=== PATIENT | female | born 1970 | race Caucasian/White ===

== ENCOUNTER 2016-10-31 21:17 | Inpatient (IN) | payer BC, OTHER ==
[~2016-10-31] VITALS: Ht 165.1 cm; Wt 78.7 kg
[2016-10-31 22:23] LABS: Urine Bilirubin Negative (Negative); Urine Blood Negative /uL (Negative); Urine Color Yellow (Yellow); Urine Glucose Normal (Normal); Urine Ketone 2+ (Negative); Urine Mucus FEW (None Seen); Urine Nitrite Negative (Negative); Urine RBC <1 /hpf (0 - 4); Urine Squamous Epithelial Cell FEW /hpf (<5); Urine pH 8.5 (5.0-8.0)
[2016-10-31 22:24] LABS: Basophils # (auto) 0.1 uL; Basophils % (auto) 0.5 % (0.0-2.0); Eosinophils # (auto) 0 uL; Hematocrit 35.2 % (36.0-46.0); Hemoglobin 11.8 g/dL (12.2-16.2); Lymphocytes # (auto) 0.3 uL; Lymphocytes % (auto) 2.3 % (10.0-50.0); Mean Corpuscular Hemoglobin 28.9 pg (28.0-32.0); Mean Corpuscular Hgb Conc. 33.6 g/dL (32.0-36.0); Mean Corpuscular Volume 86.1 fL (80.0-100.0); Mean Platelet Volume 7.4 fL (6.9-10.8); Monocytes # (auto) 1.2 uL; Monocytes % (auto) 8.1 % (0.0-12.0); Neutrophils # (auto) 13.3 uL; Neutrophils % (auto) 89.1 % (37.0-80.0); Platelet Count (auto) 202 10^3/uL (140-450); White Blood Cell 14.9 10^3/uL (4.4-10.8)
[2016-10-31 22:31] LABS: INR 1.09 (0.9-1.15); Partial Thromboplastin Time 25.8 sec (22.64-33.71); Prothrombin Time 11.9 sec (9.37-12.3)
[2016-10-31 22:42] LABS: Albumin 3.6 g/dL (3.4-5.0); BUN/Creatinine Ratio 11.5; Calcium 8.7 mg/dL (8.5-10.1); Potassium 3.9 mmol/L (3.5-5.1)
[2016-10-31 22:45] LABS: Bilirubin, Total 0.8 mg/dL (0.2-1.0); Total Protein 7.2 g/dL (6.4-8.2)
[2016-11-01] MEDS ORDERED: SODIUM CHLORIDE 0.9% 1,000 ML IV ONE ×2 (01:15)
[2016-11-01] MEDS ORDERED: metroNIDAZOLE 500MG/100ML 100 ML IV ONE (01:15)
[2016-11-01] MEDS ORDERED: cefTRIAXone 1GM/50ML D5W 50 ML IV ONE (01:15)
[2016-11-01] MEDS ORDERED: ONDANSETRON HCL 4 MG/2 ML VIAL IV ONE (02:30)
[2016-11-01] MEDS ORDERED: MORPHINE SULF INJ 2 MG/ML SYRINGE 1ML IV ONE (02:30)
[2016-11-01] MEDS ORDERED: NITROGLYCERIN 0.4 MG SL TAB SL PRN (07:00)
[2016-11-01] MEDS ORDERED: ACETAMINOPHEN 325 MG TAB PO PRN (07:00)
[2016-11-01] MEDS ORDERED: MORPHINE SULF INJ 2 MG/ML SYRINGE 1ML IV PRN (07:00)
[2016-11-01] MEDS ORDERED: ONDANSETRON HCL 4 MG/2 ML VIAL IV PRN (07:00)
[2016-11-01 08:28] VITALS: BP 102/68
[2016-11-01] MEDS: MORPHINE SULF INJ 2 MG/ML SYRINGE 1ML IV PRN ×3 (08:48→22:48)
[2016-11-01] MEDS: SODIUM CHLORIDE 0.9% 1,000 ML IV SCH ×2 (08:48→12:00)
[2016-11-01] MEDS: cefTRIAXone 1GM/50ML D5W 50 ML IV SCH (08:57)
[2016-11-01] MEDS: PANTOPRAZOLE 40 MG/10 ML VIAL IV SCH (10:20)
[2016-11-01 12:30] VITALS: BP 92/55
[2016-11-01] MEDS: D5W/LACTATED RINGERS 1,000 ML IV SCH ×2 (12:42→21:00)
[2016-11-01] MEDS: metroNIDAZOLE 500MG/100ML 100 ML IV SCH ×2 (14:48→22:47)
[2016-11-01 16:12] VITALS: BP 91/55
[2016-11-01] MEDS ORDERED: BUPIVACAINE 0.25% INJ 50ML VIAL ONE (16:20)
[2016-11-01] MEDS ORDERED: LIDOCAINE 1% HCL (LOCAL ANESTH.) INJ 20ML MDV ONE (16:20)
[2016-11-01] MEDS ORDERED: ceFAZolin 1GM/50ML D5W 50 ML IV ONE (16:25)
[2016-11-01] MEDS ORDERED: PROPOFOL 10 MG/ML 20 ML IV ONE (16:30)
[2016-11-01] MEDS ORDERED: MIDAZOLAM HCL 1MG/1ML-2 ML VIAL ONE (16:30)
[2016-11-01] MEDS ORDERED: MEPERIDINE HCL (50 MG/ML) 1 ML VIAL ONE (16:30)
[2016-11-01] MEDS ORDERED: SODIUM CHLORIDE LOCK 10 ML ONE (16:30)
[2016-11-01] MEDS ORDERED: fentaNYL CITRATE 100 MCG/2 ML VL ONE (16:30)
[2016-11-01] MEDS ORDERED: ROCURONIUM 10MG/ML 10ML VIAL IV ONE (16:30)
[2016-11-01] MEDS ORDERED: KETOROLAC TROMETH 60MG/2ML VIAL IM ONE (17:06)
[2016-11-01] MEDS ORDERED: NEOSTIGMINE 1 MG/ML INJ (10mg/10ML VIAL) ONE (17:06)
[2016-11-01] MEDS ORDERED: GLYCOPYRROLATE 0.2 MG/ML 1ML VIAL ONE (17:06)
[2016-11-01] MEDS ORDERED: METOCLOPRAMIDE HCL 5MG/ml INJ 2ml VIAL IV ONE (18:00)
[2016-11-01] MEDS ORDERED: KETOROLAC TROMETH 30 MG/ML 1ML VIAL IV ONE (18:00)
[2016-11-01] MEDS: HYDROmorphone HCL 2 MG/ML VL IV PRN ×2 (18:05→18:15)
[2016-11-01 20:00] VITALS: BP 90/57
[2016-11-01 22:00] VITALS: BP 90/57
[2016-11-01] MEDS: HYDROcodone-ACET 5/325MG TAB PO PRN (23:07)
[2016-11-02] MEDS: D5W/LACTATED RINGERS 1,000 ML IV SCH (04:18)
[2016-11-02 05:33] VITALS: BP 96/58
[2016-11-02] MEDS: metroNIDAZOLE 500MG/100ML 100 ML IV SCH ×3 (05:35→21:00)
[2016-11-02] MEDS: HYDROcodone-ACET 5/325MG TAB PO PRN ×3 (05:40→21:01)
[2016-11-02 07:06] LABS: Basophils # (auto) 0 uL; Eosinophils # (auto) 0 uL; Hematocrit 29.4 % (36.0-46.0); Hemoglobin 9.9 g/dL (12.2-16.2); Lymphocytes # (auto) 0.4 uL; Mean Corpuscular Hemoglobin 29.5 pg (28.0-32.0); Mean Corpuscular Hgb Conc. 33.7 g/dL (32.0-36.0); Mean Corpuscular Volume 87.4 fL (80.0-100.0); Mean Platelet Volume 7.9 fL (6.9-10.8); Monocytes # (auto) 0.6 uL; Monocytes % (auto) 6.6 % (0.0-12.0); Neutrophils # (auto) 7.9 uL; Neutrophils % (auto) 89.4 % (37.0-80.0); Platelet Count (auto) 142 10^3/uL (140-450); Red Cell Distribution Width 14.2 % (11.8-14.3); White Blood Cell 8.9 10^3/uL (4.4-10.8)
[2016-11-02 07:26] LABS: Albumin 2.7 g/dL (3.4-5.0); Calcium 8.4 mg/dL (8.5-10.1); Potassium 4.7 mmol/L (3.5-5.1)
[2016-11-02 07:28] LABS: BUN/Creatinine Ratio 16.7
[2016-11-02 07:31] LABS: Bilirubin, Total 0.3 mg/dL (0.2-1.0); Total Protein 5.7 g/dL (6.4-8.2)
[2016-11-02 08:00] VITALS: BP 115/70
[2016-11-02 09:12] VITALS: BP 99/63
[2016-11-02] MEDS: cefTRIAXone 1GM/50ML D5W 50 ML IV SCH (09:27)
[2016-11-02] MEDS: PANTOPRAZOLE 40 MG/10 ML VIAL IV SCH (09:27)
[2016-11-02] MEDS ORDERED: MORPHINE SULF INJ 2 MG/ML SYRINGE 1ML IV PRN (10:45)
[2016-11-02] MEDS ORDERED: D5W/LACTATED RINGERS 1,000 ML IV SCH (12:30)
[2016-11-02 13:10] VITALS: BP 115/70
[2016-11-02 16:47] VITALS: BP 109/64
[2016-11-02 22:20] VITALS: BP 96/70
[2016-11-03 05:07] VITALS: BP 103/69
[2016-11-03] MEDS: metroNIDAZOLE 500MG/100ML 100 ML IV SCH (05:49)
[2016-11-03 08:00] VITALS: BP 134/80
[2016-11-03] MEDS: cefTRIAXone 1GM/50ML D5W 50 ML IV SCH (08:24)
[2016-11-03 08:55] VITALS: BP 134/80
[2016-11-03 10:36] VITALS: BP 134/80
[2016-11-03] MEDS ORDERED: ONDA4TAB5 PO (12:29)
== END 2016-11-03 17:07 | disposition home or self-care (01) | DRG 340 ==
LOC: ER 21:24 → TELE 21:25 → TELE-E-ADS 11-01 08:02 → TELE-CENTR 11-01 11:34
PROVIDERS: ADMIT Nurse Practitioner; ATTEND Hospitalist
PROC: 0W9J4ZZ Drainage of Pelvic Cavity, Percutaneous Endoscopic Approach (ICD-10-PCS; 2016-11-01)
PROC: 0DTJ4ZZ Resection of Appendix, Percutaneous Endoscopic Approach (ICD-10-PCS; principal; 2016-11-01 16:35)
DX: K35.3 Acute appendicitis with localized peritonitis (principal); N20.0 Calculus of kidney; N73.9 Female pelvic inflammatory disease, unspecified; J45.909 Unspecified asthma, uncomplicated; Z82.3 Family history of stroke; Z83.3 Family history of diabetes mellitus; Z82.49 Family history of ischemic heart disease and other diseases of the circulatory system; Z82.0 Family history of epilepsy and other diseases of the nervous system
CPT/HCPCS: 36415; 74176; 80053; 81001; 81025; 82150; 83690; 84702; 85025; 85610; 85730; 86850; 86900; 86901; 87040; C9113; J0690; J0696; J1885; J2001; J2250; J2405; J2704; J3490

== ENCOUNTER 2016-11-05 14:12 | Emergency (ER) | payer BC ==
[~2016-11-05] VITALS: Ht 165.1 cm; Wt 70.3 kg
[~2016-11-05 14:12] MED LIST: ONDA4TAB5 PO
[2016-11-05 15:10] LABS: Basophils # (auto) 0.1 uL; Basophils % (auto) 0.8 % (0.0-2.0); Eosinophils # (auto) 0.1 uL; Eosinophils % (auto) 1.2 % (0.0-7.0); Hematocrit 33.7 % (36.0-46.0); Lymphocytes % (auto) 14.2 % (10.0-50.0); Mean Corpuscular Hemoglobin 28.2 pg (28.0-32.0); Mean Corpuscular Hgb Conc. 32.7 g/dL (32.0-36.0); Mean Corpuscular Volume 86.3 fL (80.0-100.0); Mean Platelet Volume 7.5 fL (6.9-10.8); Monocytes # (auto) 0.6 uL; Monocytes % (auto) 8.7 % (0.0-12.0); Neutrophils # (auto) 5.3 uL; Neutrophils % (auto) 75.1 % (37.0-80.0); Nucleated Red Blood Cells % 0.1 %; Platelet Count (auto) 227 10^3/uL (140-450); White Blood Cell 7.1 10^3/uL (4.4-10.8)
[2016-11-05 15:29] LABS: Albumin 3.2 g/dL (3.4-5.0); Anion Gap 6 (5-15); Blood Urea Nitrogen 8 mg/dL (7-18); Calcium 8.5 mg/dL (8.5-10.1); Carbon Dioxide 27 mmol/L (21-32); Chloride 109 mmol/L (98-107); Glucose 99 mg/dL (74-106); Magnesium 2.1 mg/dL (1.6-2.6); Potassium 3.9 mmol/L (3.5-5.1); Sodium 142 mmol/L (136-145)
[2016-11-05 15:31] LABS: Aspartate Aminotransferase 17 U/L (15-37); BUN/Creatinine Ratio 11.8; GFR African American 121 mL/min; GFR Non-African American 100 mL/min
[2016-11-05 15:36] LABS: Alkaline Phosphatase 51 U/L (45-117); Bilirubin, Total 0.3 mg/dL (0.2-1.0); Total Protein 6.6 g/dL (6.4-8.2)
[2016-11-05 15:46] LABS: Urine Bilirubin Negative (Negative); Urine Blood Negative /uL (Negative); Urine Color Yellow (Yellow); Urine Glucose Normal (Normal); Urine Ketone Negative (Negative); Urine Nitrite Negative (Negative); Urine RBC <1 /hpf (0 - 4); Urine Squamous Epithelial Cell FEW /hpf (<5); Urine Urobilinogen Normal (Negative); Urine pH 7.5 (5.0-8.0)
[2016-11-05] MEDS ORDERED: SODIUM CHLORIDE 0.9% 1,000 ML IVB ONE (16:52)
[2016-11-05] MEDS ORDERED: cefTRIAXone 1GM/50ML D5W 50 ML IV ONE (18:00)
[2016-11-05] MEDS ORDERED: IBUPROFEN 600 MG TAB PO ONE (18:15)
[2016-11-05] MEDS ORDERED: ONDANSETRON HCL 4 MG/2 ML VIAL IV ONE (19:00)
[2016-11-05 19:57] VITALS: BP 119/69
== END 2016-11-05 20:45 | disposition home or self-care (01) ==
LOC: ER 14:19
DX: J18.1 Lobar pneumonia, unspecified organism (principal); J45.909 Unspecified asthma, uncomplicated; Z90.89 Acquired absence of other organs
CPT/HCPCS: 36415; 71020; 74176; 80053; 81001; 81025; 83690; 83735; 84443; 84484; 85025; 85379; 93005; 94761; 96361; 96365; 96375; 99285; J0696; J2405; J7030

== ENCOUNTER 2018-06-02 00:23 | Emergency (ER) | payer BC, OTHER ==
[~2018-06-02] VITALS: Ht 165.1 cm; Wt 81.6 kg
[2018-06-02 01:48] LABS: Basophils # (auto) 0.2 uL; Eosinophils # (auto) 0.2 uL; Eosinophils % (auto) 2.3 % (0.0-7.0); Hematocrit 36.3 % (36.0-46.0); Lymphocytes # (auto) 1.6 uL; Lymphocytes % (auto) 19.3 % (10.0-50.0); Mean Corpuscular Hemoglobin 27.4 pg (28.0-32.0); Mean Corpuscular Hgb Conc. 33.1 g/dL (32.0-36.0); Mean Corpuscular Volume 82.7 fL (80.0-100.0); Monocytes # (auto) 0.7 uL; Monocytes % (auto) 8.2 % (0.0-12.0); Neutrophils # (auto) 5.8 uL; Neutrophils % (auto) 68.2 % (37.0-80.0); Platelet Count (auto) 247 10^3/uL (140-450); Red Blood Cells 4.39 10^6/uL (4.0-5.20); Red Cell Distribution Width 14.5 % (11.8-14.3); White Blood Cell 8.5 10^3/uL (4.4-10.8)
[2018-06-02 01:58] LABS: Urine Bacteria NONE SEEN /hpf (None Seen); Urine Blood 1+ /uL (Negative); Urine Mucus FEW (None Seen); Urine Specific Gravity 1.023 (1.001-1.035); Urine WBC 1 /hpf (0 - 5)
[2018-06-02 01:59] LABS: Potassium 4.2 mmol/L (3.5-5.1)
[2018-06-02 02:03] LABS: Albumin 3.7 g/dL (3.4-5.0); Calcium 8.6 mg/dL (8.5-10.1)
[2018-06-02 02:09] LABS: BUN/Creatinine Ratio 12.5; Bilirubin, Total 0.1 mg/dL (0.2-1.0); Total Protein 7.5 g/dL (6.4-8.2)
[2018-06-02] MEDS ORDERED: SODIUM CHLORIDE 0.9% 1,000 ML IV ONE (08:53)
[2018-06-02] MEDS ORDERED: METOCLOPRAMIDE HCL 5MG/ml INJ 2ml VIAL IV ONE (09:00)
[2018-06-02] MEDS ORDERED: KETOROLAC TROMETH 30 MG/ML 1ML VIAL IV ONE (09:00)
[2018-06-02 09:38] VITALS: BP 112/72
== END 2018-06-02 10:03 | disposition home or self-care (01) ==
LOC: ER 00:23
DX: S33.5XXA Sprain of ligaments of lumbar spine, initial encounter (principal); J45.909 Unspecified asthma, uncomplicated; K42.9 Umbilical hernia without obstruction or gangrene; K59.00 Constipation, unspecified; Z90.89 Acquired absence of other organs; Z79.899 Other long term (current) drug therapy; X58.XXXA Exposure to other specified factors, initial encounter; Y93.89 Activity, other specified; Y92.89 Other specified places as the place of occurrence of the external cause; Y99.8 Other external cause status
CPT/HCPCS: 36415; 74176; 80053; 81001; 85025; 96374; 99284; J1885

== ENCOUNTER 2023-03-17 02:27 | Emergency (ER) | payer MEDICAID, OTHER ==
[~2023-03-17] VITALS: Ht 165.1 cm; Wt 75.0 kg
[~2023-03-17 02:27] MED LIST changes: +ONDA-144 PO; -ONDA4TAB5 PO
[2023-03-17 02:35] VITALS: PULSE 100; RESP 20; O2SAT 99
[2023-03-17] MEDS ORDERED: SODIUM CHLORIDE 0.9% 1,000 ML IV ONE (03:00)
[2023-03-17] MEDS ORDERED: DexAMETHasone SOD PHOS 10MG/1ML VIAL INJ IV ONE (03:00)
[2023-03-17] MEDS ORDERED: EPINEPHrine HCL 1 MG/1 ML AMP SC ONE (03:00)
[2023-03-17] MEDS ORDERED: FAMOTIDINE INJECTION 40 MG in SODIUM CHL 0.9% 100 ML IV ONE (03:00)
[2023-03-17] MEDS ORDERED: diphenhdrAMINE HCL 50 MG/1 ML VL IV ONE (03:00)
[2023-03-17] MEDS ORDERED: LEVALBUTEROL HCL 1.25 MG/3 ML NEB NEB SCH ×2 (03:30→06:00)
[2023-03-17] MEDS ORDERED: LEVALBUTEROL HCL 1.25 MG/3 ML NEB NEB ONE (03:45)
[2023-03-17 04:03] VITALS: RESP 20
[2023-03-17 05:08] VITALS: BP 108/57; PULSE 99; TEMP 98.5; O2SAT 100
[2023-03-17] MEDS ORDERED: HYDR1CAP27 PO (21:11)
== END 2023-03-17 05:52 | disposition home or self-care (01) ==
LOC: ER 02:27
DX: T78.40XA Allergy, unspecified, initial encounter (principal); J45.909 Unspecified asthma, uncomplicated; X58.XXXA Exposure to other specified factors, initial encounter
CPT/HCPCS: 94640; 96365; 96372; 96375; 99284; J0171; J1100; J1200; J3490; J7030; J7612

== ENCOUNTER 2023-03-17 16:38 | Emergency (ER) | payer MEDICAID ==
[~2023-03-17] VITALS: Ht 165.1 cm; Wt 60.0 kg
[2023-03-17] MEDS ORDERED: hydrOXYzine 25 MG TAB or CAP PO ONE (18:30)
[2023-03-17 18:48] LABS: Chloride 110 mmol/L (98-107); Potassium 4.3 mmol/L (3.5-5.1); Sodium 141 mmol/L (136-145)
[2023-03-17 18:49] LABS: Anion Gap 5 (5-15); Calcium 9.4 mg/dL (8.7-10.4); Carbon Dioxide 26 mmol/L (20-30)
[2023-03-17 18:54] LABS: BUN/Creatinine Ratio 18.3 (10.0-20.0); Blood Urea Nitrogen 15 mg/dL (9-23); Glucose 134 mg/dL (74-106)
[2023-03-17 19:08] LABS: Basophils # (auto) 0 10 ^3/uL (0-0.2); Basophils % (auto) 0.1 % (0.0-2.0); Eosinophils # (auto) 0 10 ^3/uL (0-0.8); Hematocrit 39.7 % (36.0-46.0); Hemoglobin 13.1 g/dL (12.2-16.2); Lymphocytes # (auto) 0.7 10 ^3/uL (0.4-5.4); Lymphocytes % (auto) 4.8 % (10.0-50.0); Mean Corpuscular Hemoglobin 29.5 pg (28.0-32.0); Mean Corpuscular Hgb Conc. 33.1 g/dL (32.0-36.0); Mean Corpuscular Volume 89.1 fL (80.0-100.0); Monocytes # (auto) 0.9 10 ^3/uL (0-1.3); Monocytes % (auto) 6.3 % (0.0-12.0); Neutrophils # (auto) 13.1 10 ^3/uL (1.6-8.6); Neutrophils % (auto) 88.8 % (37.0-80.0); Red Blood Cells 4.46 10^6/uL (4.0-5.20); Red Cell Distribution Width 13.2 % (11.8-14.3); White Blood Cell 14.7 10^3/uL (4.4-10.8)
[2023-03-17 19:35] VITALS: BP 140/74; PULSE 72; RESP 18; TEMP 98.1; O2SAT 98
[2023-03-17 20:56] LABS: Urine Bacteria NONE SEEN /hpf (None Seen); Urine Blood Negative /uL (Negative); Urine Clarity Clear (Clear); Urine Color Yellow (Yellow); Urine Mucus FEW (None Seen); Urine Protein, UAD Negative (Negative); Urine Specific Gravity 1.019 (1.001-1.035); Urine Urobilinogen Normal (Negative); Urine WBC 1 /hpf (0 - 5)
[2023-03-17] MEDS ORDERED: HYDR1CAP27 PO (21:11)
== END 2023-03-17 21:27 | disposition home or self-care (01) ==
LOC: EDSEX 16:38 → EDBD 16:38 → ER 16:38
DX: L50.9 Urticaria, unspecified (principal); L29.9 Pruritus, unspecified; T37.8X5A Adverse effect of other specified systemic anti-infectives and antiparasitics, initial encounter; Y92.9 Unspecified place or not applicable
CPT/HCPCS: 36415; 80048; 81001; 85025